=== PATIENT | female | born 1940 | race Caucasian/White ===

== ENCOUNTER → 2019-08-17 10:28 | Outpatient (BNVA) | payer MEDICARE, OTHER, SELFPAY | PROVIDERS: Visit Provider Nurse Practitioner Family | DX: R73.09 Other abnormal glucose (principal) | CPT/HCPCS: 83036 ==

== ENCOUNTER → 2019-11-03 15:41 | Outpatient (BNVA) | payer MEDICARE, OTHER, SELFPAY | PROVIDERS: Visit Provider Nurse Practitioner Family | DX: M25.571 Pain in right ankle and joints of right foot (principal); I10 Essential (primary) hypertension; S82.64XA Nondisplaced fracture of lateral malleolus of right fibula, initial encounter for closed fracture; X58.XXXA Exposure to other specified factors, initial encounter; M20.11 Hallux valgus (acquired), right foot | CPT/HCPCS: 73590; 73610; 73630; 80048 ==

== ENCOUNTER → 2019-11-17 13:52 | Outpatient (BNVA) | payer MEDICARE, OTHER, SELFPAY | PROVIDERS: Visit Provider Nurse Practitioner Family | DX: I10 Essential (primary) hypertension (principal); E03.9 Hypothyroidism, unspecified; E78.5 Hyperlipidemia, unspecified; E11.9 Type 2 diabetes mellitus without complications; S82.64XA Nondisplaced fracture of lateral malleolus of right fibula, initial encounter for closed fracture; R53.1 Weakness; X58.XXXA Exposure to other specified factors, initial encounter | CPT/HCPCS: 80053; 80061; 83036; 84443; 85025 ==

== ENCOUNTER → 2019-12-01 13:07 | Outpatient (BNVA) | payer MEDICARE, OTHER, SELFPAY | PROVIDERS: Visit Provider Podiatrist Foot & Ankle Surgery | DX: S82.891A Other fracture of right lower leg, initial encounter for closed fracture (principal); X58.XXXA Exposure to other specified factors, initial encounter | CPT/HCPCS: 73610 ==

== ENCOUNTER 2019-12-29 08:59 | Outpatient (CLI) | payer MEDICARE, OTHER, SELFPAY ==
--- NOTE | 2019-12-29 09:08 | XRR_ITS ---
PROCEDURE INFORMATION: Exam: XR Right Ankle Exam date and time: 12/29/2019 9:26 AM Age: 79 years old Clinical indication: Pain; Ankle; Right; Patient HX: HX of fall x 2 months; Additional info: Fracture TECHNIQUE: Imaging protocol: XR Right ankle. Views: Frontal, lateral, and oblique views. COMPARISON: CR XR ankle RT min 3V* [id number] 12/01/2019 1:13 PM FINDINGS: Bones/joints: No acute bony abnormality identified. A moderate plantar calcaneal ossified spur is present. Soft tissues: Normal. XR/XR ankle RT min 3V* [id number] IMPRESSION: 1. No acute bony abnormality identified. 2. Plantar calcaneal spur.
== END 2019-12-29 09:00 | disposition home or self-care (01) ==
LOC: RAD 09:05
PROVIDERS: Visit Provider Podiatrist Foot & Ankle Surgery
DX: S82.831A Other fracture of upper and lower end of right fibula, initial encounter for closed fracture (principal); X58.XXXA Exposure to other specified factors, initial encounter
CPT/HCPCS: 73610

== ENCOUNTER → 2020-03-10 09:00 | Outpatient (BNVA) | payer MEDICARE, OTHER, SELFPAY | PROVIDERS: Visit Provider Nurse Practitioner Family | DX: E11.9 Type 2 diabetes mellitus without complications (principal); E03.9 Hypothyroidism, unspecified; I10 Essential (primary) hypertension | CPT/HCPCS: 80053; 80061; 83036; 84443; 85025 ==

== ENCOUNTER → 2020-08-10 13:25 | Outpatient (BNVA) | payer MEDICARE, OTHER, SELFPAY | PROVIDERS: Visit Provider Nurse Practitioner Family | DX: E11.9 Type 2 diabetes mellitus without complications (principal); I10 Essential (primary) hypertension; E03.9 Hypothyroidism, unspecified; E55.9 Vitamin D deficiency, unspecified | CPT/HCPCS: 80053; 80061; 82306; 82607; 83036; 83735; 84443; 85025 ==

== ENCOUNTER → 2020-08-23 16:32 | Outpatient (BNVA) | payer MEDICARE, OTHER, SELFPAY | PROVIDERS: Visit Provider Nurse Practitioner Family | DX: Z12.11 Encounter for screening for malignant neoplasm of colon (principal) | CPT/HCPCS: 82270 ==

== ENCOUNTER → 2020-09-06 08:56 | Outpatient (BNVA) | payer MEDICARE, OTHER, SELFPAY | PROVIDERS: Visit Provider Nurse Practitioner | DX: F03.90 Unspecified dementia, unspecified severity, without behavioral disturbance, psychotic disturbance, mood disturbance, and anxiety (principal) | CPT/HCPCS: 99204 ==

== ENCOUNTER 2020-09-19 08:11 | Outpatient (CLI) | payer MEDICARE, OTHER, SELFPAY ==
--- NOTE | 2020-09-19 08:45 | MR_ITS ---
WS: [id number] MRI HEAD WITH CONTRAST TECHNIQUE: Sagittal T1, T2 axial, T2 axial FLAIR, axial susceptibility weighted imaging, axial diffus ion weighted images, and coronal T2 images were obtained. Pre and post-T1 axial and post T1 coronal i mages. ADC and FSPGR images. CLINICAL INFORMATION: F03.90 - Unspecified dementia without behavioral disturbance COMPARISON: None. FINDINGS: No evidence of restricted diffusion to suggest acute ischemia. Moderate small vessel changes. Moderat e parenchymal volume loss. Small vessel changes in the nicholas. Tiny chronic lacunar infarcts in the right cerebellum. Normal vascular flow voids at the skull base. No extra-axial fluid collections. Mild mucosal thickening in the paranasal sinuses. Mastoid air cells are well aerated. No hemosiderin on susceptibly weighted images. No abnormal gadolinium enhancement. Normal optic chiasm and pituitary infundibulum. Normal dural veno us sinuses. Moderate symmetric atrophy temporal lobes and hippocampal formations. MR/MR head wo/w con [id number] IMPRESSION: 1. No evidence of restricted diffusion to suggest acute ischemia. 2. Moderate small vessel changes with moderate parenchymal volume loss. 3. Small vessel changes in the nicholas. 4. Moderate symmetric atrophy temporal lobes and hippocampal formations. 5. Mild mucosal thickening paranasal sinuses. Mastoid air cells well aerated. 6. No abnormal gadolinium enhancement.
[2020-09-19] MEDS: gadobenate dimeglumine 20 mL vial IV (09:25)
== END 2020-09-19 08:12 | disposition home or self-care (01) ==
LOC: RADSHAW 08:16
PROVIDERS: Visit Provider Nurse Practitioner
DX: F03.90 Unspecified dementia, unspecified severity, without behavioral disturbance, psychotic disturbance, mood disturbance, and anxiety (principal); G31.9 Degenerative disease of nervous system, unspecified
CPT/HCPCS: 70553; A9577

== ENCOUNTER 2020-10-24 07:34 | Emergency (ER) | payer MEDICARE, OTHER, SELFPAY ==
[2020-10-24 07:35] VITALS: BP 174/97; PULSE 77; RESP 16; TEMP 36.6; O2SAT 97; BMI 21.6
--- NOTE | 2020-10-24 07:42 | CT_ITS ---
WS: [id number] CT ABDOMEN AND PELVIS WITH CONTRAST HISTORY: Constipation and prolapsed uterus. TECHNIQUE: Imaging performed of the abdomen and pelvis with IV contrast. Single phase imaging of the abdomen. Coronal and sagittal reformats are submitted. All CT scans at [facility] use at least one of these dose optimization techniques: automated exposure control; mA and/or kV adjustment per patient size (includes targeted exams where dose is matched to clinical indication); or iterativ e reconstruction. IV CONTRAST: Visipaque 320; 95 mL IV. Oral contrast: No DLP: 1268.75 mGy.cm COMPARISON: None available. Lower thorax: Linear areas of chronic atelectasis or scar at the lung bases. Heart is normal size. Mo derate hiatal hernia. Liver/biliary system: Normal size with no intrahepatic dilatation. Gallbladder: Normal. No gallstones or wall thickening. No pericholecystic fluid. Pancreas: Body and tail of the pancreas is slightly enlarged and featureless. No bile duct dilatation . No adjacent inflammation. Spleen: Normal size spleen. No mass or infarct. Adrenal glands: Normal. Right kidney: Diffuse cortical thinning. There are a few hypodensities within the cortex which reache s small to characterize. No obstruction. Left kidney: Mild atrophy with diffuse cortical thinning and too small to characterize hypodensities. No obstruction. Aorta: Normal. Lymphadenopathy: No adenopathy identified. Lymph nodes would be difficult to visualize without oral c ontrast. Free fluid: None. GI tract: Severe diffuse obstipation. Colonic mucosa cannot be well evaluated without oral contrast. Abdominal wall: Fat-containing umbilical hernia. Pelvis: Marked distention of the urinary bladder. Bladder is overly distended. Coarse calcification i n the RIGHT pelvis is probably fibroid uterus. Bones: Moderate rotary scoliosis of the visualized thoracic and lumbar spines. Asymmetric disc space narrowing. CT/CT abdomen pelvis w con* [id number] IMPRESSION: 1. Severe diffuse obstipation. 2. Marked distention of the urinary bladder. 3. Calcified mass in the pelvis to the RIGHT of midline is probably a fibroid uterus. 4. Moderate size hiatal hernia. 5. No free fluid or free air.
[2020-10-24 07:44] VITALS: BP 174/97; PULSE 72; RESP 18; O2SAT 98
[2020-10-24] MEDS: sodium chloride 0.9% 500 ML 999 ML IV (08:08)
[2020-10-24 08:15] VITALS: BP 139/80; PULSE 73; RESP 18; O2SAT 99
[2020-10-24 08:15] LABS: Basophils % 0.7 %; Eosinophils # 0.1 10^3/uL (0.0-0.8); Eosinophils % 1.5 %; Hematocrit 36.5 % (37.0-47.0); Lymphocytes # 0.7 10^3/uL (0.8-4.8); Lymphocytes % 15.1 %; Mean Corpuscular HGB Conc 32.9 g/dL (30.0-36.0); Mean Corpuscular Hemoglobin 30.9 pg (28.0-34.0); Mean Corpuscular Volume 94.1 fL (81-99); Mean Platelet Volume 9.6 fL (7.4-10.4); Monocytes # 0.3 10^3/uL (0.2-0.9); Monocytes % 5.9 %; Neutrophils % 76.6 %; Nucleated Red Blood Cells % 0 %; Platelet Count 217 10^3/cmm (130-400); Red Blood Count 3.88 10^6/uL (4.1-5.3); Red Cell Distribution Width 12.4 % (12.1-15.1); White Blood Count 4.6 10^3/uL (4.0-10.0)
--- NOTE | 2020-10-24 08:15 | PC.NURSE ---
Bedside guiaic done by Dr Velázquez, chaperoned by this nurse. Guiaic negative.
--- NOTE | 2020-10-24 08:18 | W.ED.GENADLT ---
HPI - General Adult General: Chief complaint: General Medical Stated complaint: CONSTIPATION Time Seen by Provider: 10/24/20 07:34 History of Present Illness: HPI narrative: 80-year-old female presents emergency room with her she has Alzheimer's dementia he is convinced that she has some kind of blockage and needs to be admitted and have surgery. He states that she has a prolapse. She has not had a bowel movement by his report for 3 days. Patient is pleasantly confused and not really able to tell us too much she states she has some generalized abdominal discomfort. She denies chest pain shortness of breath or dysuria. Notable sign any jimmie hematochezia. Onset (ago): day(s) Location: abdomen Radiation: non-radiation Severity: moderate Quality: dull and constant Pain Consistency: constant Relieving factors: none Exacerbating factors: none Associated symptoms: Reports confusion, decreased appetite, malaise, nausea and weakness; Deny chest pain, cough, diaphoresis, dyspnea, fevers/chills, headache(s), rash, palpitations, seizures, short of breath, syncope or vomiting Treatments prior to arrival: other (Various [id number] laxatives) Review of Systems Const: Reports: malaise; Denies: diaphoresis ENMT: Denies: throat pain, ear or mastoid pain, nasal discharge or nasal congestion Card: Denies: chest pain, palpitations or syncope Resp: Denies: dyspnea GI: Reports: nausea; Denies: vomiting : Denies: flank pain, difficulty voiding, dysuria, urinary frequency or urinary urgency Skin/Breast: Denies: rash Neuro: Reports: confusion; Denies: headache(s) PFS ED PFSH: Medical History ASVD (arteriosclerotic vascular disease) Breast cyst REMOVED FROM RIGHT BREAST Hyperlipidemia Hypertension Hypothyroid Osteoporosis Restless leg syndrome Surgical History History of femoral hernia repair Hx of cataract extraction Family History Mother Diabetes Stroke Father CHF (congestive heart failure) Bright's disease Social History Smoking and tobacco status: never smoked Second hand smoke exposure: No Alcohol intake: current Alcohol intake frequency: holidays/special occasions only Alcohol type: wine Lives independently: Yes Household members: spouse Housing: House Marital status: Current occupational status: retired History of recent travel: No Current gender identity: Female Chantal/Baptism: Taoism Special chantal needs: Yes Agree to transfusion: No Physical Exam Const: COMMON NORMALS: no acute distress GENERAL APPEARANCE: cooperative and comfortable ORIENTATION/CONSCIOUSNESS: Yes awake HENMT: COMMON NORMALS: normocephalic, atraumatic and hearing grossly normal bilaterally HEAD & SCALP: normocephalic and atraumatic Neck/C-Spine: COMMON NORMALS: no JVD Lymph: LYMPHATIC: no lymphadenopathy noted and no lymphedema noted Resp: COMMON NORMALS: normal respiratory effort, No retractions, No use of accessory muscles and clear to auscultation bilaterally AUSCULTATION: clear to auscultation bilaterally Cardio: COMMON NORMALS: no JVD, regular rate, regular rhythm and No murmurs present (Cardio) RATE: regular rate RHYTHM: regular rhythm GI: COMMON NORMALS: Soft to palpation and No hepatosplenomegaly present AUSCULTATION: Yes normoactive bowel sounds PALPATION: Yes Soft to palpation, No Tenderness to palpation present (GI), No Guarding due to palpation present (GI) and Yes No hepatosplenomegaly present Extremity: COMMON NORMALS: normal to inspection, capillary refill normal, no clubbing, cyanosis or edema, no calf tenderness and no pedal edema Skin: COMMON NORMALS: no rashes or lesions noted GENERAL SKIN EXAM: no rashes or lesions noted Course Vital Signs: Vital signs: Vital Signs Temperature 97.9 F 10/24/20 07:35 Pulse Rate 72 10/24/20 12:50 Respiratory Rate 18 10/24/20 12:50 Blood Pressure 136/77 10/24/20 12:50 Pulse Oximetry 98 10/24/20 12:50 MDM - General Adult MDM Narrative: Medical decision making narrative: No significant finding on labs or imaging. Reviewed with the patient and her . She is primarily constipated. After enema she is feeling somewhat better there is a large return we will have her use mag citrate to resolve the rest and start MiraLAX for preventative. Lab Data: Labs: Lab Results 10/24/20 10/24/2021 Range/Units 08:00 08:05 08:05 WBC 4.6 (4.0-10.0) 10^3/ uL RBC 3.88 L (4.1-5.3) 10^6/u L Hgb 12.0 (11.5-15.3) g/dL Hct 36.5 L (37.0-47.0) % MCV 94.1 (81-99) fL MCH 30.9 (28.0-34.0) pg MCHC 32.9 (30.0-36.0) g/dL RDW 12.4 (12.1-15.1) % Plt Count 217 (130-400) 10^3/c mm MPV 9.6 (7.4-10.4) fL Neut % (Auto) 76.6 % Lymph % (Auto) 15.1 % [place] % (Auto) 5.9 % Eos % (Auto) 1.5 % Baso % (Auto) 0.7 % Neut # (Auto) 3.50 (1.8-7.7) 10^3/u L Lymph # (Auto) 0.7 L (0.8-4.8) 10^3/u L [place] # (Auto) 0.3 (0.2-0.9) 10^3/u L Eos # (Auto) 0.1 (0.0-0.8) 10^3/u L Baso # (Auto) 0.0 (0.0-0.1) 10^3/u L Nucleated RBC % (a uto) 0 % Nucleated RBCs # 0.0 /100WBC Sodium 137 (136-145) mmol/L Potassium 3.5 (3.5-5.1) mmol/L Chloride 97 L (98-107) mmol/L Carbon Dioxide 30 H (22-29) mmol/L Anion Gap 13.5 (5-19) BUN 27 H (8-23) mg/dL Creatinine 1.0 H (0.5-0.9) mg/dL GFR Calculation Not Reportable Glucose 116 H (65-115) mg/dL Calculated Osmolal ity 290 (285-295) mOsm/k g Calcium 9.9 (8.5-10.5) mg/dL Total Bilirubin 1.3 H (0.15-1.2) mg/dL AST 21 (0-32) U/L ALT 16 (0-33) U/L Alkaline Phosphata se 50 (35-105) IU/L Total Protein 7.0 (6.6-8.7) g/dL Albumin 4.5 (3.5-5.2) g/dL Globulin 2.5 (1.3-4.6) g/dL Urine Color Yellow (Yellow) Urine Appearance Clear (CLEAR) Urine pH 7 (5-7) Ur Specific Gravit y 1.005 (1.005-1.030) Urine Protein Neg (Negative) Urine Glucose (UA) Norm (Normal) Urine Ketones Negative (Negative) Urine Blood 2+ H (Negative) Urine Nitrate Negative (Negative) Urine Bilirubin Neg (Negative) Urine Urobilinogen Norm (Negative) mg/dL Ur Leukocyte Mariela ase Negative (Negative) Urine RBC 5-10 H (0-2) /hpf Urine WBC 0-4 H (0-5) /hpf Ur Squamous Epith Cells 0-4 H (0-5) /hpf Amorphous Sediment Trace /hpf Urine Bacteria Trace (NONE) /hpf Discharge Plan Discharge Patient Disposition: Home Clinical Impression: Constipation by delayed colonic transit Condition: Stable Prescriptions: New magnesium citrate Solution 150 ml PO BID PRN (Reason: constipation) Qty: 296 RF: 0 Miralax 17 gram/dose powder 17 g PO DAILY Qty: 510 RF: 0 No Action aspirin 81 mg tablet,delayed release (DR/EC) 81 mg PO DAILY RF: 0 cholecalciferol (vitamin D3) 125 mcg (5,000 unit) tablet 125 mcg PO DAILY RF: 0 fluocinonide 0.05 % ointment 1 applic TOPICAL BID Qty: 15 RF: 0 amlodipine 5 mg tablet See Rx Instructions .ROUTE .COMPLEX Qty: 90 RF: 1 lisinopril-hydrochlorothiazide 20-12.5 mg tablet See Rx Instructions .ROUTE .COMPLEX Qty: 180 RF: 1 pravastatin 40 mg tablet See Rx Instructions .ROUTE .COMPLEX Qty: 90 RF: 1 levothyroxine 50 mcg tablet See Rx Instructions .ROUTE .COMPLEX Qty: 90 RF: 1 fluticasone propionate [Allergy Relief (fluticasone)] 50 mcg/actuation spray,suspension 2 spray INTRANASAL DAILY Qty: 15.8 RF: 11 Discharge Orders: Discharge ED (Routine); Ordered 05/11/21 Ordered By: Albino Velázquez Referrals: [facility] [Primary Care Provider] - Discharge Diet: Usual diet Discharge Activity: Resume usual activity Patient Instructions: Opioid Safety Activity Restrictions/Additional Instructions: Follow up with your primary care doctor within the week. Coding Level of Care Code ED Er Medical Technician for Pham Fwd Exam Comprehensive
[2020-10-24 08:39] LABS: Add Urine Microscopic? YES; Bilirubin Urine Neg (Negative); Blood Urine 2+ (Negative); Glucose Urine UA Norm (Normal); Ketones Urine Negative (Negative); Leukocyte Esterase Urine Negative (Negative); Nitrate Urine Negative (Negative); Protein Urine Neg (Negative); Specific Gravity, Urine 1.005 (1.005-1.030); Urine Appearance Clear (CLEAR); Urine Color Yellow (Yellow); Urobilinogen Urine Norm (Negative); pH Urine 7 (5-7)
[2020-10-24 08:42] LABS: Squamous Epithelial Cell Urine 0-4 /hpf (0-5); WBC Urine 0-4 /hpf (0-5)
[2020-10-24 08:43] LABS: Add Urine Culture? No; Amorphous Sediment Urine TRACE /hpf; Bacteria Urine TRACE /hpf
[2020-10-24 08:45] LABS: Alanine Aminotransferase 16 U/L (0-33); Albumin Level 4.5 g/dL (3.5-5.2); Alkaline Phosphatase 50 IU/L (35-105); Anion Gap 13.5 (5-19); Aspartate Amino Transferase 21 U/L (0-32); Blood Urea Nitrogen 27 mg/dL (8-23); Calcium 9.9 mg/dL (8.5-10.5); Carbon Dioxide 30 mmol/L (22-29); Chloride 97 mmol/L (98-107); Globulin 2.5 g/dL (1.3-4.6); Glucose 116 mg/dL (65-115); Osmolality Calculated 290 mOsm/kg (285-295); Potassium 3.5 mmol/L (3.5-5.1); Sodium 137 mmol/L (136-145); Total Bilirubin 1.3 mg/dL (0.15-1.2)
--- NOTE | 2020-10-24 08:45 | PC.NURSE ---
Pt placed on bedpan
[2020-10-24] MEDS: iodixanol 320 mg/mL 100mL Btl IV (09:26)
--- NOTE | 2020-10-24 11:29 | PC.NURSE ---
enema ggiven given no results at this time
[2020-10-24 12:50] VITALS: BP 136/77; PULSE 72; RESP 18; O2SAT 98
== END 2020-10-24 12:53 | disposition home or self-care (01) ==
PROVIDERS: Emergency Provider Family Medicine
DX: K59.01 Slow transit constipation (principal); Z79.82 Long term (current) use of aspirin; E78.5 Hyperlipidemia, unspecified; I10 Essential (primary) hypertension
CPT/HCPCS: 36415; 74177; 80053; 81001; 85025; 99283; J7040; Q9967

== ENCOUNTER → 2020-10-30 14:51 | Outpatient (BNVA) | payer MEDICARE, OTHER, SELFPAY | PROVIDERS: Visit Provider Nurse Practitioner Family | DX: K59.01 Slow transit constipation (principal); M79.604 Pain in right leg; R63.4 Abnormal weight loss; R25.1 Tremor, unspecified; F03.90 Unspecified dementia, unspecified severity, without behavioral disturbance, psychotic disturbance, mood disturbance, and anxiety; I10 Essential (primary) hypertension; E78.5 Hyperlipidemia, unspecified; E03.9 Hypothyroidism, unspecified | CPT/HCPCS: 73590; 80053; 82607; 83735; 84439; 84443; 84481; 85025 ==